=== PATIENT | female | born 1930 | race Caucasian/White ===

== ENCOUNTER 2018-08-16 15:33 | Inpatient (IN) | payer MEDICARE, BC ==
[~2018-08-16] VITALS: Ht 172.7 cm; Wt 63.0 kg
--- NOTE | 2018-08-16 15:50 | NUR ---
PT BIB SELF SENT BY DR. RODRIGUEZ, C/O CP x 2 DAYS, WORST TODAY, RADIATES TO R ARM/BACK, PT IS AAOX3, NOT IN RESPIRATORY DISTRESS. KEPT RESTED AND COMFORTABLE. EKG DONE
--- NOTE | 2018-08-16 15:56 | NUR ---
SEEN AND EXAMINED BY DR. SEVERINO.
--- NOTE | 2018-08-16 16:10 | NUR ---
LABS DRAWNED AND SENT TO LAB. AWAITING RESULTS.
[2018-08-16 16:17] LABS: BASOPHILS # (AUTO) 0.1 /CMM (0.0-0.2); BASOPHILS % (AUTO) 0.9 % (0.0-2.0); EOSINOPHILS % (AUTO) 1.2 % (0.0-6.0); HEMATOCRIT 37 % (33-45); HEMOGLOBIN 11.7 g/dL (11.5-14.8); LYMPHOCYTES % (AUTO) 16.1 % (20.0-44.0); MEAN CORPUSCULAR HGB CONC 32 g/dl (31.0-36.0); MEAN CORPUSCULAR VOLUME 83 fL (82-100); MONOCYTES # (AUTO) 0.6 /CMM (0.1-1.30); NEUTROPHILS # (AUTO) 4.6 /CMM (1.8-8.9); NEUTROPHILS % (AUTO) 72.8 % (43.0-81.0); PLATELET COUNT (AUTO) 294 /CMM (150-450); RED BLOOD CELL COUNT(AUTO) 4.46 MIL/uL (4.0-5.2); WHITE BLOOD COUNT (AUTO) 6.3 K/uL (4.3-11.0)
[2018-08-16] MEDS ORDERED: KETOROLAC TROMETHAMINE 15 MG/ML VIAL ONE (16:17)
[2018-08-16] MEDS ORDERED: ONDANSETRON HCL/PF 4 MG/2 ML VIAL ONE (16:17)
[2018-08-16 16:24] LABS: CALCIUM, SERUM 10.4 mg/dL (8.5-10.1); CARBON DIOXIDE 28 mmol/L (21-32); CHLORIDE 100 mmol/L (98-107); CREATININE 1.2 mg/dL (0.6-1.3); GLUCOSE 120 mg/dL (74-106); POTASSIUM 3.7 mmol/L (3.5-5.1); SODIUM SERUM 137 mmol/L (136-145); UREA NITROGEN, BLOOD 32 mg/dL (7-18)
[2018-08-16] MEDS ORDERED: IV NS 0.9% 1,000 ML BAG IV ONE (16:30)
[2018-08-16] MEDS ORDERED: KETOROLAC TROMETHAMINE INJ 30 MG/ML VIAL IV ONE (16:30)
[2018-08-16] MEDS ORDERED: ONDANSETRON HCL/PF 4 MG/2 ML VIAL IVP ONE (16:30)
[2018-08-16 16:31] LABS: ALANINE AMINOTRANSFERASE 17 U/L (12-78); ALKALINE PHOSPHATASE 47 U/L (46-116); ASPARTATE AMINOTRANSFERASE 21 U/L (15-37); BILIRUBIN,DIRECT 0.2 mg/dL (0.0-0.2); BILIRUBIN,TOTAL 0.5 mg/dL (0.2-1.0); LIPASE 198 U/L (73-393); TOTAL PROTEIN, SERUM 8.2 g/dL (6.4-8.2)
--- NOTE | 2018-08-16 16:48 | NUR ---
WHEELED TO CT SCAN VIA [facility].
--- NOTE | 2018-08-16 17:12 | NUR ---
PAGED EPIC FOR PANEL.
--- NOTE | 2018-08-16 17:27 | NUR ---
URINE SPECIMEN COLLECTED AND SENT TO LAB.
[2018-08-16] MEDS ORDERED: ASPIRIN 81 MG TAB.CHEW ONE (17:29)
[2018-08-16] MEDS ORDERED: HYDROMORPHONE 1 MG/1 ML DISP.SYRIN ONE (17:29)
[2018-08-16] MEDS ORDERED: ASPIRIN 81 MG TAB.CHEW PO ONE (17:30)
[2018-08-16] MEDS ORDERED: HYDROMORPHONE INJ 0.5 MG/0.5 ML SYRINGE IV ONE (17:30)
[2018-08-16 17:41] LABS: APPEARANCE,URINE Clear (CLEAR); BILIRUBIN,URINE Negative (NEGATIVE); BLOOD, URINE Trace-intact Ery/uL (NEGATIVE); COLOR,URINE Yellow (YELLOW); KETONES,URINE Negative (NEGATIVE); LEUKOCYTE ESTERASE ,URINE Small (NEGATIVE); NITRITE, URINE Negative (NEGATIVE); PROTEIN,URINE 100 mg/dl (NEGATIVE); UGLUCOSE Negative (NEGATIVE); UROBILINOGEN,URINE 0.2 EU/dL (0.2)
[2018-08-16] MEDS ORDERED: CLOPIDOGREL BISULFATE 75 MG TABLET ONE (17:52)
[2018-08-16 17:53] LABS: BACTERIA,URINE 1+ /HPF (None Seen); SQUAMOUS EPITHELIAL CELL,UR Few /HPF (None Seen)
[2018-08-16] MEDS ORDERED: CLOPIDOGREL BISULFATE 75 MG TABLET PO ONE (18:00)
--- NOTE | 2018-08-16 18:01 | NUR ---
116-1 TELE ADM DX; CP
[2018-08-16] MEDS ORDERED: AMLO5TAB9 PO (18:11)
[2018-08-16] MEDS ORDERED: METO-356 PO (18:11)
[2018-08-16] MEDS ORDERED: APIX2.5T PO (18:11)
[2018-08-16] MEDS ORDERED: AREDS VITAMIN (18:11)
[2018-08-16] MEDS ORDERED: FENO160T PO (18:11)
[2018-08-16] MEDS ORDERED: VITAMIN D PO (18:11)
[2018-08-16] MEDS ORDERED: METF-440 PO (18:11)
[2018-08-16] MEDS ORDERED: TRAV5DRO EACHEYE (18:36)
[2018-08-16] MEDS ORDERED: ALBU18HF2 IH ×2 (18:36)
--- NOTE | 2018-08-16 18:47 | NUR ---
REPORT GIVEN TO ELIDA SHAW FOR LISANDRO.
--- NOTE | 2018-08-16 19:20 | NUR ---
RN NOTES RECEIVED PATIENT ON [facility] . PATIENT IS A/A/OX4, NO COMPLAINS OF PAIN OR ANY DISCOMFORT AT THIS TIME , NO SOB. PATIENT PLACED ON FRAME TABLE OPERATOR WITH SR HR60'S.LEFT AC IV LINE IS PATIENT AND INTACT. SKIN ASSESSMENT IS DONE. ALL SAFETY MEASURES ARE IMPLEMENTED, BED IN LOW AND LOCKED POSITION, CALL LIGHT IN REACH. PATIENT HAS BEEN ORIENTED TO OUR UNIT. WILL CONTINUE TO MONITOR PATIENT ACCORDINGLY.
[2018-08-16] MEDS ORDERED: IV NS 0.9% 1,000 ML IV PRN (19:50)
[2018-08-16 20:00] VITALS: BP 150/60
[2018-08-16] MEDS ORDERED: MAGNESIUM HYDROXIDE 30 ML UDC PO PRN (20:00)
[2018-08-16] MEDS ORDERED: DEXTROSE 50%-WATER 50 ML DISP.SYRIN IV PRN (20:00)
[2018-08-16] MEDS ORDERED: Z GUARD REMEDY 2 OZ OINT TP PRN (20:00)
[2018-08-16] MEDS ORDERED: ZOLPIDEM TARTRATE 5 MG TABLET PO PRN (20:00)
[2018-08-16] MEDS ORDERED: ONDANSETRON HCL/PF 4 MG/2 ML VIAL IVP PRN (20:00)
[2018-08-16] MEDS ORDERED: INSULIN REGULAR, HUMAN 100 UNIT/ML 3 ML VIAL SQ PRN (20:00)
[2018-08-16] MEDS ORDERED: ACETAMINOPHEN 325 MG TABLET PO PRN (20:00)
[2018-08-16] MEDS ORDERED: MAG HYDROX/AL HYDROX/SIMETH 30 ML UDC PO PRN (20:00)
[2018-08-16] MEDS: METFORMIN 500 MG TABLET PO SCH (20:57)
[2018-08-16] MEDS: AMLODIPINE BESYLATE 5 MG TABLET PO SCH (20:57)
[2018-08-16] MEDS: APIXABAN 2.5 MG TABLET PO SCH (21:33)
[2018-08-16] MEDS ORDERED: LATANOPROST EYE DROP 0.005% 2.5 ML BOTTLE OP SCH (22:00)
[2018-08-16] MEDS: BLOOD SUGAR DIAGNOSTIC 1 EACH STRIP IN SCH (22:12)
--- NOTE | 2018-08-16 23:35 | NUR ---
RN NOTES PATIENT IS A/A/OX4 AND WHISHES TO BE DNR/DNI. RAMANDEEP RICHARDSON NOTIFIED. MD HEATHER UNGER AT THE BEDSIDE AND SHE TALKED TO THE PATIENT ABOUT CODE STATUS AND AGAIN PATIENT WHISHED TO BE DNR/DNI.
[2018-08-17] VITALS: BP 178/63
--- NOTE | 2018-08-17 | NUR ---
CALLED DR SABILLON ABOUT PATIENT B/P 178/63. AND NEW MEDICATION ORDER IS IN PLACE. WILL CONT. TO MONITOR PT.
--- NOTE | 2018-08-17 01:00 | NUR ---
PATIENT BP RECHECKED AND IT IS 136/78 HR-67. WILL CONT. TO MONITOR.
[2018-08-17] MEDS ORDERED: ALBUTEROL FS 2.5 MG/3 ML VIAL.NEB NEB PRN (01:30)
[2018-08-17] MEDS ORDERED: hydrALAZINE HCL 25 MG TABLET PO PRN (01:30)
[2018-08-17] MEDS: HYDROCODONE/APAP 5/325MG 1 EACH TABLET PO PRN ×2 (02:07→07:11)
[2018-08-17 04:00] VITALS: BP 178/53
[2018-08-17 07:00] LABS: BASOPHILS # (AUTO) 0.1 /CMM (0.0-0.2); BASOPHILS % (AUTO) 0.9 % (0.0-2.0); EOSINOPHILS % (AUTO) 1.7 % (0.0-6.0); HEMATOCRIT 36 % (33-45); HEMOGLOBIN 11.5 g/dL (11.5-14.8); LYMPHOCYTES # (AUTO) 1.2 /CMM (0.8-4.8); LYMPHOCYTES % (AUTO) 19.8 % (20.0-44.0); MEAN CORPUSCULAR HGB CONC 32 g/dl (31.0-36.0); MEAN CORPUSCULAR VOLUME 82 fL (82-100); MONOCYTES # (AUTO) 0.7 /CMM (0.1-1.30); MONOCYTES % (AUTO) 10.9 % (2.0-12.0); NEUTROPHILS # (AUTO) 4.1 /CMM (1.8-8.9); NEUTROPHILS % (AUTO) 66.7 % (43.0-81.0); PLATELET COUNT (AUTO) 223 /CMM (150-450); RED BLOOD CELL COUNT(AUTO) 4.41 MIL/uL (4.0-5.2); WHITE BLOOD COUNT (AUTO) 6.2 K/uL (4.3-11.0)
[2018-08-17 07:22] LABS: CALCIUM, SERUM 9.8 mg/dL (8.5-10.1); CARBON DIOXIDE 26 mmol/L (21-32); CHLORIDE 106 mmol/L (98-107); CREATININE 1.2 mg/dL (0.6-1.3); GLUCOSE 79 mg/dL (74-106); MAGNESIUM 1.7 mg/dL (1.8-2.4); PHOSPHORUS 3.9 mg/dL (2.5-4.9); POTASSIUM 4.1 mmol/L (3.5-5.1); SODIUM SERUM 142 mmol/L (136-145); UREA NITROGEN, BLOOD 28 mg/dL (7-18)
--- NOTE | 2018-08-17 07:32 | NUR ---
ASSISTANT ASSOCIATE FULL PROFESSOR OPENING NOTES RECEIVED PT FROM NIGHTSHIFT RN IN STABLE CONDITION.PT A/O X3. NO SOB OR ACUTE SIGNS OF DISTRESS NOTED. BREATHING IS EVEN AND UNLABORED. PT ON 2 L VIA NC AND SATING WELL. SHE DENIES ANY CHEST PAIN AT THIS TIME, HOWEVER STATES THAT SHE HAS PAIN IN HER LOWER BACK AND RIGHT SHOULDER. WILL ALERT MD. PT CURRENTLY SR ON THE TELE MONITOR. IV TO RIGHT AC NOTED TO BE PATENT AND INTACT. PT TOLERATING NS INFUSION WELL. NO REDNESS OR SIGNS OF INFILTRATION NOTED. BED IN LOW LOCKED POSITION. SIDE RIAL SUP X2, CALL LIGHT WITHIN REACH. WILL CONTINUE TO MONITOR
[2018-08-17 08:00] VITALS: BP 162/48
--- NOTE | 2018-08-17 08:12 | NUR ---
HORTICULTURE SUPERINTENDENT NOTES: MD UPDATE DR ROMERO AT BEDSIDE. MD MADE AWARE OF PT'S PAIN WHICH HAS SINCE BEEN RELIVED WITH PRN NORCO. NO NEW ORDERS GIVEN AT THIS TIME. SHE CONTINUES TO DENY ANY CHEST PAIN OR TIGHTNESS. NO NEW ORDERS GIVEN BY MD. PT AWAITING CLEARANCE FROM CARDIOLOGY ONCE CONSULTED. WILL CONTINUE TO MONITOR
[2018-08-17] MEDS: BLOOD SUGAR DIAGNOSTIC 1 EACH STRIP IN SCH ×2 (08:48→11:48)
[2018-08-17 09:00] LABS: CHOLESTEROL 213 mg/dL (<200); HDL CHOLESTEROL 80 mg/dL (40-60); LDL 125 mg/dL (0-99); TRIGLYCERIDES 80 mg/dL (30-150)
[2018-08-17] MEDS ORDERED: FENOFIBRATE NANOCRYS (145 MG) 145 MG TABLET PO SCH (09:00)
[2018-08-17] MEDS ORDERED: APIXABAN 2.5 MG TABLET PO SCH (09:00)
[2018-08-17] MEDS ORDERED: METOPROLOL SUCCINATE 25 MG TAB.SR.24H PO SCH (09:00)
[2018-08-17] MEDS ORDERED: ALBUTEROL FS 2.5 MG/3 ML VIAL.NEB NEB SCH (09:00)
[2018-08-17] MEDS: Magnesium 1GM/D5W 100ML PREMIX 100 ML IV SCH ×2 (09:15→10:28)
[2018-08-17] MEDS: METFORMIN 500 MG TABLET PO SCH (09:58)
[2018-08-17] MEDS: AMLODIPINE BESYLATE 5 MG TABLET PO SCH (10:00)
[2018-08-17] MEDS: APIXABAN 2.5 MG TABLET PO SCH (10:05)
[2018-08-17] MEDS ORDERED: VALSARTAN 80 MG TABLET PO SCH (11:30)
[2018-08-17 11:49] VITALS: BP 148/48
--- NOTE | 2018-08-17 11:55 | NUR ---
MS RN NOTES: BS MANAGEMENT PT'S CURRENT BS IS 146. PT REFUSING INSULIN ADMINISTRATION AT THIS TIME.. RISKS AND BENEFITS DISCUSSED WITH PT ALONG WITH FURTHER EDUCATION OF S/S OF HYPER/HYPOGLYCEMIA. PT VERBALIZED FULL UNDERSTANDING
--- NOTE | 2018-08-17 13:13 | NUR ---
MS DIRECTOR PEOPLESOFT NOTES PT WAS DISCHARGED FROM FACILITY IN STABLE CONDITION. ALL NEEDS WERE MET DURING SHIFT AND ORDERS CARRIED OUT ACCORDINGLY. ALL DUE MEDS GIVEN. PRN CARE RENDERED. SHE DENIES ANY CHEST PAIN PRIOR TO D/C. ELECTROLYTES REPLACED DURING SHIFT. IV WAS SUCCESSFULLY REMOVED WITH NO COMPLICATIONS. SHE WAS SAFELY WHEELED TO THE FRONT LOBBY AND LEFT VIA PRIVATE VEHICLE
== END 2018-08-17 13:00 | disposition home or self-care (01) | DRG 206 ==
LOC: ER 15:34 → TELE1 18:26 → MEDSG1 08-17 11:18
PROVIDERS: ADMIT Internal Medicine; ATTEND Internal Medicine
DX: M94.0 Chondrocostal junction syndrome [Tietze] (principal); E86.0 Dehydration; E11.9 Type 2 diabetes mellitus without complications; E78.5 Hyperlipidemia, unspecified; I10 Essential (primary) hypertension; I25.10 Atherosclerotic heart disease of native coronary artery without angina pectoris; K21.9 Gastro-esophageal reflux disease without esophagitis; Z88.8 Allergy status to other drugs, medicaments and biological substances; Z79.84 Long term (current) use of oral hypoglycemic drugs; Z79.899 Other long term (current) drug therapy; Z79.01 Long term (current) use of anticoagulants; Z87.891 Personal history of nicotine dependence; Z95.2 Presence of prosthetic heart valve; Z79.51 Long term (current) use of inhaled steroids; I35.0 Nonrheumatic aortic (valve) stenosis; Z83.438 Family history of other disorder of lipoprotein metabolism and other lipidemia; I48.0 Paroxysmal atrial fibrillation; R79.89 Other specified abnormal findings of blood chemistry; N28.1 Cyst of kidney, acquired; D35.01 Benign neoplasm of right adrenal gland
CPT/HCPCS: 36415; 71045-TC; 76705-TC; 80048-TC; 80061-TC; 80076-TC; 81000-TC; 82962-TC; 83690-TC; 83735-TC; 84100-TC; 84484-TC; 85025-TC; 85730-TC; 87081-TC; 87086-TC; G0378; J1170; J1815; J1885; J2405; J3475; J7030